=== PATIENT | female | born 1985 | race African-American/Black ===

== ENCOUNTER 2020-09-28 07:28 | Emergency (ER) | payer MEDICAID ==
[~2020-09-28] VITALS: Ht 170.2 cm; Wt 102.0 kg
[2020-09-28] MEDS ORDERED: ACETAMINOPHEN 325MG TABLET PO ONE (07:45)
[2020-09-28] MEDS ORDERED: LIDOCAINE HCL/PF 1% 10 MG/ML 5ML VIAL IJ ONE (07:45)
[2020-09-28 09:06] VITALS: BP 140/78
== END 2020-09-28 09:07 | disposition home or self-care (01) ==
LOC: ER 07:28
DX: S01.81XA Laceration without foreign body of other part of head, initial encounter (principal); S09.8XXA Other specified injuries of head, initial encounter; Y08.89XA Assault by other specified means, initial encounter; Y93.9 Activity, unspecified; Y92.9 Unspecified place or not applicable
CPT/HCPCS: 12013; 70450; 99284; A4217; J3490; Z7610

== ENCOUNTER 2022-05-15 17:56 | Emergency (ER) | payer MEDICAID ==
[~2022-05-15] VITALS: Ht 170.2 cm; Wt 90.0 kg
[2022-05-15 18:12] VITALS: BP 139/77
== END 2022-05-16 02:00 | disposition home or self-care (01) ==
LOC: ER 17:56
DX: Z00.00 Encounter for general adult medical examination without abnormal findings (principal); Z59.00 Homelessness unspecified
CPT/HCPCS: 81025; 99282